=== PATIENT | female | born 2000 | race African-American/Black ===

== ENCOUNTER 2022-12-26 15:15 | Emergency (ER) | payer OTHER, SELFPAY ==
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
[2022-12-26 15:20] VITALS: BP 124/88; PULSE 82; RESP 16; TEMP 36.5; O2SAT 98; BMI 22.2
[2022-12-26] MEDS: Ketorolac Tromethamine 30 MG/ML VIAL IM (16:15)
[2022-12-26] MEDS: Lidocaine 4 % Patch ADH..PATCH 1 PATCH TRANSDERMA (16:16)
== END 2022-12-26 19:03 | disposition home or self-care (01) ==
PROVIDERS: Emergency Provider Emergency Medicine
DX: S43.52XA Sprain of left acromioclavicular joint, initial encounter (principal); W50.0XXA Accidental hit or strike by another person, initial encounter; Y93.F9 Activity, other caregiving; Y92.230 Patient room in hospital as the place of occurrence of the external cause; Y99.9 Unspecified external cause status
CPT/HCPCS: 73030; 96372; 99283; 99284; J1885

== ENCOUNTER → 2022-12-28 12:54 | Outpatient (BNVA) | payer OTHER, SELFPAY | DX: Z13.89 Encounter for screening for other disorder (principal) | CPT/HCPCS: 99203 ==

== ENCOUNTER → 2023-01-08 11:39 | Outpatient (BNVA) | payer OTHER, SELFPAY | PROVIDERS: Visit Provider Physician Assistant Medical | DX: Z13.89 Encounter for screening for other disorder (principal) | CPT/HCPCS: 99213 ==

== ENCOUNTER → 2023-02-03 13:18 | Outpatient (BNVA) | payer OTHER, SELFPAY | PROVIDERS: Visit Provider Physician Assistant | DX: Z13.89 Encounter for screening for other disorder (principal) | CPT/HCPCS: 72072; 99204 ==

== ENCOUNTER → 2023-02-17 10:58 | Outpatient (BNVA) | payer OTHER, SELFPAY | PROVIDERS: Visit Provider Physician Assistant Medical | DX: Z13.89 Encounter for screening for other disorder (principal) | CPT/HCPCS: 99213 ==

== ENCOUNTER → 2023-03-03 11:33 | Outpatient (BNVA) | payer OTHER, SELFPAY | PROVIDERS: Visit Provider Physician Assistant Medical | DX: Z13.89 Encounter for screening for other disorder (principal) | CPT/HCPCS: 99213 ==

== ENCOUNTER 2023-03-08 10:00 | Outpatient (RCR) | payer OTHER, SELFPAY ==
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
--- NOTE | 2023-03-08 14:23 | MHC.PT.DC ---
[facility] [place] Office [place] Office [place] Office [address] Ladan Mckay [address] [phone] F: [phone] F: [phone] F: [phone] F: [phone] Physical Therapy Discharge Report Diagnosis: L shoulder AC sprain Date of Surgery: Date of Evaluation: 01/07/23 Date of Discharge: 03/08/23 Treatments to Date: 8 Cancellations to Date: 0 No Shows to Date: 0 Discharge Status: Improved Function Independent with HEP Discharge Summary: Pt was seen for PT from 01/07/23-03/08/23. Pt has made good progress since SOC. She does continue to occasionally have pain 0-3/10 but overall demonstrates improvements in strength in function throughout sessions. She met her STGs and LTGs. Pt reports she feels ready for D/C. I recommend she perform HEP consistently for a few weeks and follow up with doctor if symptoms persist. Reviewed HEP and pt demonstrated understanding. Provided pt with printed, updated copy of HEP and red loop band for HEP and pt verbalized understanding. Pt is being D/C from PT at this time. Pt reports no further questions or concerns for PT at this time. Electronically signed by: Larissa Sullivan, PT, DPT Please sign and return to therapist. Thank you for your referral.
== END 2023-03-08 14:26 | disposition home or self-care (01) ==
LOC: HO.PT 10:00
PROVIDERS: Visit Provider Physician Assistant Medical
DX: S43.52XD Sprain of left acromioclavicular joint, subsequent encounter (principal)
CPT/HCPCS: 97110; 97140; 97161; 97164

== ENCOUNTER → 2023-03-16 10:26 | Outpatient (BNVA) | payer OTHER, SELFPAY | PROVIDERS: Visit Provider Physician Assistant Medical | DX: Z13.89 Encounter for screening for other disorder (principal) | CPT/HCPCS: 99213 ==

== ENCOUNTER 2023-04-12 23:27 | Emergency (ER) | payer OTHER, SELFPAY ==
[2023-04-12 23:43] VITALS: BP 128/86; PULSE 105; RESP 18; TEMP 36.7; O2SAT 97; BMI 22.3
[2023-04-13 00:42] LABS: HBS Num1 0.63 mIU/mL (0-7.99); HBc Num1 0.14 S/CO (0.00-0.79); HBsAGNum1 0.37 S/CO (0.00-0.99); HIV AB/AG Nonreactive (Nonreactive); HIV Num 1 0.08 S/CO (0.00-0.99); Hepatitis B Core Antibody Nonreactive (Nonreactive); Hepatitis B Surface Antigen Negative (Negative); ~HepC Num1 0.08 S/CO (0.00-0.79); ~Hepatitis B Surface Antibody NONREACTIVE (Nonreactive)
[2023-04-13 00:49] LABS: Hepatitis C Ab Exposure Source NonReactive (Nonreactive)
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
== END 2023-04-13 01:13 | disposition home or self-care (01) ==
PROVIDERS: Emergency Provider Emergency Medicine
DX: Z04.2 Encounter for examination and observation following work accident (principal); Z77.21 Contact with and (suspected) exposure to potentially hazardous body fluids; H57.11 Ocular pain, right eye
CPT/HCPCS: 36415; 86803; 87389; 99282; 99283

== ENCOUNTER → 2023-05-12 13:53 | Outpatient (BNVA) | payer OTHER, SELFPAY | PROVIDERS: Visit Provider Physician Assistant Medical | DX: Z13.89 Encounter for screening for other disorder (principal) | CPT/HCPCS: 99213 ==